=== PATIENT | male | born 1955 | race Hispanic/Latino ===

== ENCOUNTER 2017-02-14 07:30 | Day surgery (SDC) | payer BC ==
[2017-02-14] MEDS ORDERED: Lactated Ringer's 1,000 ML IV ONE (08:19)
[2017-02-14] MEDS ORDERED: Propofol 10 mg/ml Inj (20 ML) ONE (10:09)
[2017-02-14] MEDS ORDERED: Lidocaine 2% MPF (5 ml) Inj ONE (10:09)
[2017-02-14] MEDS ORDERED: Midazolam 2 MG/2 ML VIAL ONE (10:09)
[2017-02-14 10:30] VITALS: TEMP 97; O2SAT 97
[2017-02-14 11:00] VITALS: BP 117/65; PULSE 68; RESP 14
== END 2017-02-14 11:01 | disposition home or self-care (01) ==
LOC: H.ENDO 07:30
PROVIDERS: ATTEND Internal Medicine Gastroenterology
DX: K62.5 Hemorrhage of anus and rectum (principal); I25.10 Atherosclerotic heart disease of native coronary artery without angina pectoris; E78.5 Hyperlipidemia, unspecified; I10 Essential (primary) hypertension; E03.9 Hypothyroidism, unspecified; Z12.11 Encounter for screening for malignant neoplasm of colon
CPT/HCPCS: 45378; J2250; J2704; J7120